=== PATIENT | male | born 1990 ===

== ENCOUNTER 2016-09-21 01:22 | Emergency (ER) | payer BC ==
[2016-09-21 02:04] VITALS: O2SAT 100
--- NOTE | 2016-09-21 02:21 | ED PDOC ---
HPI: CCC, URI, Sore Throat Time Seen by Provider: 09/21/16 02:03 Chief Complaint (Nursing): Flu-like Symptoms Chief Complaint (Provider): fever History Per: Patient History/Exam Limitations: no limitations Onset/Duration Of Symptoms: Hrs (10) Current Symptoms Are (Timing): Still Present Location Of Pain: Throat, Diffuse Myalgias Associated Symptoms: Fever, Chills, Sore Throat, Myalgias, Nasal Congestion. denies: Cough, Sputum, Vomiting Additional History Per: Patient Additional Complaint(s): 26 y/o male presents with fever x 10 hours. Associated nasal congestion, sore throat, bodyaches. Patient notes no improvement of fever with Tylenol; last dose 19:00. Denies neck pain, cough, chest pain, shortness of breath, nausea/ vomiting, abdominal pain, changes in bowel movements, urinary symptoms. Patient girlfriend sick with similar. Past Medical History Reviewed: Historical Data, Nursing Documentation, Vital Signs Vital Signs: Last Vital Signs Temp 100.4 F H 09/21/16 03:26 Pulse 108 H 09/21/16 03:26 Resp 15 09/21/16 03:26 BP 118/68 09/21/16 03:26 Pulse Ox 100 09/21/16 03:30 - Medical History PMH: No Chronic Diseases - Surgical History Surgical History: No Surg Hx - Family History Family History: States: Unknown Family Hx - Living Arrangements Living Arrangements: With Family - Home Medications Home Medications: Ambulatory Orders Medication Instructions Recorded Fluticasone Nasal [Flonase] 2 actuation NS DAILY #1 bottle 09/21/16 Ibuprofen [Motrin Tab] 1 tab PO Q6 PRN #20 tab 09/21/16 - Allergies Allergies/Adverse Reactions: Allergies Allergy/AdvReac Type Severity Reaction Status Date / Time No Known Allergies Allergy Verified 09/21/16 02:04 Review of Systems ROS Statement: Except As Marked, All Systems Reviewed And Found Negative Constitutional: Positive for: Fever, Chills ENT: Positive for: Nose Congestion, Throat Pain Physical Exam - Reviewed Nursing Documentation Reviewed: Yes Vital Signs Reviewed: Yes - Physical Exam Appears: Positive for: Well, Non-toxic, No Acute Distress Head Exam: Positive for: ATRAUMATIC, NORMAL INSPECTION, NORMOCEPHALIC Skin: Positive for: Normal Color Eye Exam: Positive for: Normal appearance ENT: Positive for: Pharyngeal Erythema Neck: Positive for: Normal Cardiovascular/Chest: Positive for: Regular Rate, Rhythm Respiratory: Positive for: Normal Breath Sounds Gastrointestinal/Abdominal: Positive for: Normal Exam Back: Positive for: Normal Inspection Extremity: Positive for: Normal ROM Neurologic/Psych: Positive for: Alert, Oriented - ECG O2 Sat by Pulse Oximetry: 100 Disposition - Clinical Impression Clinical Impression: Viral illness - Patient ED Disposition Is Patient to be Admitted: No Counseled Patient/Family Regarding: Studies Performed, Diagnosis, Need For Followup, Rx Given - Disposition Disposition: Routine/Home Disposition Time: 04:44 Condition: STABLE Additional Instructions: Follow up with primary doctor in 2-3 days. Rest. Drink plenty of fluids. Take Ibuprofen/Tylenol as directed, as needed. Return to ED for worsening/concerning symptoms. Prescriptions: Fluticasone Nasal [Flonase] 2 actuation NS DAILY #1 bottle Ibuprofen [Motrin Tab] 1 tab PO Q6 PRN #20 tab PRN Reason: Pain, Moderate (4-7) Instructions: Viral Syndrome (ED) Forms: [facility] ED School/Work Excuse
[2016-09-21 03:27] VITALS: BP 118/68; PULSE 108; RESP 15
[2016-09-21 04:56] VITALS: TEMP 99.3
== END 2016-09-21 04:56 | disposition home or self-care (01) ==
LOC: H.ER 01:22
DX: B34.9 Viral infection, unspecified (principal)